=== PATIENT | female | born 1950 | race Caucasian/White ===

== ENCOUNTER → 2019-09-11 | Outpatient (CLI) | payer MEDICARE, OTHER ==
[~2019-09-11] MED LIST: ACET-76 PO; ALBU18HF INH; ASCO-96 PO; ASPI-496 PO; ATOR40TA78 PO; BUSP5TAB2 PO; CARV3.1212 PO; CHOL5000 PO; FERR-46 PO; FLUT9.9S NS; GUAI600T31 PO; HYDR-826 PO; LEVO75TA5 PO; LISI2.5T PO; OMEP-110 PO; UBID100C41 PO; VENL75TA PO; oxygen INH
[2019-09-11 09:20] LABS: MEAN CORPUSCULAR HEMOGLOBIN 29.7 pg (27.0-34.8); MEAN CORPUSCULAR HGB CONC 32.8 g/dL (32.4-35.8); MEAN CORPUSCULAR VOLUME 90.6 fL (80-100); MEAN PLATELET VOLUME 5.3 fL (7.4-10.4); PLATELET COUNT 456 x10^3/uL (130-400); RED BLOOD COUNT 3.29 x10^6/uL (3.82-5.3); RED CELL DISTRIBUTION WIDTH 14.8 % (9.6-15.2)
[2019-09-11 09:46] LABS: MD YES
[2019-09-11 09:48] LABS: EOS#(MANUAL) 0.04 x10^3/uL (0.0-0.4); EOS% (MANUAL) 1 % (1-7); LYMPH#(MANUAL) 0.68 x10^3/uL (1-3.4); LYMPHS% (MANUAL) 17 % (22-44); MONOS% (MANUAL) 10 % (2-9); SEG#(MANUAL) 2.88 x10^3/uL (1.8-6.8); SEGS% (MANUAL) 72 % (42-75)
[2019-09-11 09:50] LABS: ACANTHOCYTES 1+; ANISOCYTOSIS 1+; OVALOCYTES 1+
[2019-09-11 09:51] LABS: ECHINOCYTES 1+
[2019-09-11 09:52] LABS: <PLATELET ESTIMATE> INCREASED; SMALL PLATELETS 1+
[2019-09-14 08:52] LABS: ALANINE AMINOTRANSFERASE 17 U/L (12-78); ANION GAP 6 mmol/L (5-15); CALCIUM 8.7 mg/dL (8.5-10.1); CHLORIDE 97 mmol/L (98-107)
[2019-09-14 08:54] LABS: ALKALINE PHOSPHATASE 57 U/L (45-117); BILIRUBIN,TOTAL 0.5 mg/dL (0.2-1.0); CREATININE 0.69 mg/dL (0.55-1.02)
== END | disposition home or self-care (01) ==
LOC: STAR 08:03
PROVIDERS: ATTEND Internal Medicine Gastroenterology
DX: Z01.818 Encounter for other preprocedural examination (principal); I51.7 Cardiomegaly; I25.2 Old myocardial infarction; K31.819 Angiodysplasia of stomach and duodenum without bleeding; D50.9 Iron deficiency anemia, unspecified
CPT/HCPCS: 36415; 80053; 85025; 93005

== ENCOUNTER 2019-09-16 06:22 | Day surgery (SDC) | payer MEDICARE, OTHER ==
[~2019-09-16] VITALS: Ht 162.6 cm; Wt 54.5 kg
[2019-09-16] MEDS ORDERED: LACTATED RINGERS 1,000 ML IV SCH (07:06)
[2019-09-16] MEDS ORDERED: D5%-0.45% NACL 1,000 ML IV SCH (07:06)
[2019-09-16] MEDS ORDERED: PROPOFOL 10 MG/ML, 20ML ONE (09:03)
[2019-09-16] MEDS ORDERED: SUCCINYLCHOLINE 20 MG/ML, 10ML ONE (09:03)
[2019-09-16] MEDS ORDERED: DEXAMETHASONE 4 MG/ML, 1ML ONE (09:03)
[2019-09-16] MEDS ORDERED: GLUCAGON 1 MG ONE (09:49)
== END 2019-09-16 11:25 | disposition home or self-care (01) ==
LOC: OUT 06:22
PROVIDERS: ATTEND Internal Medicine Gastroenterology
DX: K31.819 Angiodysplasia of stomach and duodenum without bleeding (principal); K44.9 Diaphragmatic hernia without obstruction or gangrene; K29.60 Other gastritis without bleeding; J44.9 Chronic obstructive pulmonary disease, unspecified; I10 Essential (primary) hypertension; D64.9 Anemia, unspecified; E78.5 Hyperlipidemia, unspecified
CPT/HCPCS: 44369; J0330; J1100; J1610; J2704; J7120